=== PATIENT | male | born 2000 | race Caucasian/White ===

== ENCOUNTER 2024-12-19 10:14 | Emergency (ER) | payer SELFPAY ==
[2024-12-19 10:20] VITALS: PULSE 101; RESP 18; O2SAT 99
== END 2024-12-19 15:14 | disposition left against medical advice (07) ==
LOC: ER 10:14
DX: M25.531 Pain in right wrist (principal); M54.2 Cervicalgia; M54.9 Dorsalgia, unspecified; Z53.21 Procedure and treatment not carried out due to patient leaving prior to being seen by health care provider